=== PATIENT | female | born 1985 | race Caucasian/White ===

== ENCOUNTER 2024-09-15 12:57 | Inpatient (IN) | payer BC, OTHER ==
[~2024-09-15] VITALS: Ht 160 cm; Wt 72.6 kg
[2024-09-15] VITALS (7 sets, daily range): BP systolic 127–161; BP diastolic 87–104; PULSE 93–118; RESP 15–17; TEMP 97.7–98.7; O2SAT 95–100
[2024-09-15] MEDS: hydrALAZINE HCL 20 MG/ML VL IV PRN (13:25)
[2024-09-15] MEDS: MAGNESIUM SULFATE 100 ML IV ONE (13:52)
[2024-09-15 14:04] LABS: Basophils # (auto) 0.1 10 ^3/uL (0-0.2); Basophils % (auto) 1.2 % (0.0-2.0); Eosinophils # (auto) 0 10 ^3/uL (0-0.8); Hematocrit 37.5 % (36.0-46.0); Hemoglobin 12.9 g/dL (12.2-16.2); Lymphocytes # (auto) 0.8 10 ^3/uL (0.4-5.4); Lymphocytes % (auto) 5.9 % (10.0-50.0); Mean Corpuscular Hemoglobin 31.3 pg (28.0-32.0); Mean Corpuscular Hgb Conc. 34.5 g/dL (32.0-36.0); Mean Corpuscular Volume 90.7 fL (80.0-100.0); Monocytes # (auto) 0.8 10 ^3/uL (0-1.3); Monocytes % (auto) 5.9 % (0.0-12.0); Neutrophils # (auto) 11.2 10 ^3/uL (1.6-8.6); Platelet Count (auto) 202 10^3/uL (140-450); Red Blood Cells 4.13 10^6/uL (4.0-5.20); Red Cell Distribution Width 13.2 % (11.8-14.3); White Blood Cell 12.8 10^3/uL (4.4-10.8)
[2024-09-15] MEDS: CLINDAMYCIN 900MG IV 50 ML IV ONE (14:07)
[2024-09-15] MEDS: MAGNESIUM SULFATE 40MG/ML 1,000 ML IV SCH (14:12)
[2024-09-15] MEDS: LACTATED RINGER'S 1,000 ML IV SCH (14:12)
[2024-09-15 14:18] LABS: INR 0.9 (0.9-1.15); Partial Thromboplastin Time 25.9 SEC (24.5-34.5); Prothrombin Time 9.6 sec (9.3-11.8)
[2024-09-15 14:22] LABS: Alanine Aminotransferase 20 U/L (7-40); Albumin 3.3 g/dL (3.2-4.8); Alkaline Phosphatase 623 U/L (46-116); Anion Gap 8 (5-15); Aspartate Aminotransferase 39 U/L (13-40); BUN/Creatinine Ratio 13.1 (10.0-20.0); Bilirubin, Total 0.4 mg/dL (0.2-1.0); Blood Urea Nitrogen 11 mg/dL (9-23); Carbon Dioxide 20 mmol/L (20-31); Chloride 107 mmol/L (98-107); Glucose 70 mg/dL (74-106); Potassium 4.3 mmol/L (3.5-5.1); Sodium 135 mmol/L (136-145); Total Protein 6.2 g/dL (5.7-8.2); Uric Acid 9.6 mg/dL (3.1-7.8)
[2024-09-15 14:36] LABS: Urine Bacteria FEW /hpf (None Seen); Urine Blood 2+ /uL (Negative); Urine Clarity Turbid (Clear); Urine Color Colorless (Yellow); Urine Protein, UAD 1+ (Negative); Urine Specific Gravity 1.005 (1.001-1.035); Urine Urobilinogen Normal (Negative); Urine WBC 262 /hpf (0 - 5); Urine WBC Clumps PRESENT /hpf (None Seen); Urine pH 6.5 (5.0-9.0)
[2024-09-15 14:47] LABS: Protein, Urine 71.1 mg/dL (1-14)
[2024-09-15 14:48] LABS: Amphetamine Screen, Urine Pos (NEGATIVE)
[2024-09-15 14:49] LABS: Barbiturate Scree,Urine Neg (NEGATIVE); Benzodiazephine Screen, Urine Neg (NEGATIVE); Cannabinoid Screen, Urine Neg (NEGATIVE); Cocaine Screen, Urine Neg (NEGATIVE); Opiate Scree,Urine Neg (NEGATIVE); Phencyclidine Screen, Urine Neg (NEGATIVE)
[2024-09-15] MEDS ORDERED: fentaNYL CITRATE 100 MCG/2 ML VL ONE (14:54)
[2024-09-15] MEDS ORDERED: MIDAZOLAM HCL 2MG/2ML 2ml VIAL (1mg/ml) ONE (14:54)
[2024-09-15] MEDS: CARBOPROST TROMETHAMINE 250 MCG/1ML VIAL IM ONE ×3 (15:00→16:45)
[2024-09-15 15:17] LABS: Creatinine, Urine 30.12 mg/dL (30.0-125.0); Urine Protein/Creatinine Ratio 2.36
[2024-09-15] MEDS ORDERED: DOCU-94 PO (15:29)
[2024-09-15] MEDS ORDERED: IBUP-1456 PO (15:29)
[2024-09-15] MEDS ORDERED: ROCURONIUM 10MG/ML 10ML VIAL IV ONE (15:29)
[2024-09-15] MEDS ORDERED: LIDOCAINE 2% (LOCAL ANESTH.) PF 5ml SDV ONE (15:29)
[2024-09-15] MEDS ORDERED: oxyTOCIN 10 UNIT/ML 10ML VIAL ONE (15:29)
[2024-09-15] MEDS ORDERED: PROPOFOL 10 MG/ML 20 ML IV ONE (15:29)
[2024-09-15] MEDS ORDERED: HYDR-4072 PO (15:29)
[2024-09-15] MEDS ORDERED: ONDANSETRON HCL 4 MG/2 ML VIAL IV PRN (15:30)
[2024-09-15] MEDS ORDERED: LACT. RINGERS/OXYTOCIN 20UNITS 1,000 ML IV ONE (15:30)
[2024-09-15] MEDS ORDERED: SUGAMMADEX 200mg/2ml Vial (100MG/ML) IV ONE (16:06)
[2024-09-15] MEDS ORDERED: METOPROLOL TARTRATE 1MG/1ML-5ML VIAL IV ONE (16:06)
[2024-09-15] MEDS ORDERED: ACETAMINOPHEN IV 100 ML IV ONE (16:26)
[2024-09-15] MEDS ORDERED: MEPERIDINE HCL (25 MG/ML) 1ML VIAL IM ONE (16:30)
[2024-09-15] MEDS: ACETAMINOPHEN IV 1000 MG/100ML (10MG/ML) IV ONE (16:30)
[2024-09-15] MEDS ORDERED: ONDANSETRON HCL 4 MG/2 ML VIAL IV ONE (16:30)
[2024-09-15] MEDS ORDERED: HYDROmorphone HCL 2 MG/ML VL/or syr IV PRN ×2 (16:30)
[2024-09-15] MEDS ORDERED: MEPERIDINE HCL (25 MG/ML) 1ML VIAL ONE (16:32)
[2024-09-15] MEDS ORDERED: ONDANSETRON HCL 4 MG/2 ML VIAL ONE (16:38)
[2024-09-15] MEDS ORDERED: CARBOPROST TROMETHAMINE 250 MCG/1ML VIAL IM ONE (16:39)
[2024-09-15] MEDS: DIPHENOXYLATE W/ATROPINE 2.5 MG TAB PO ONE (18:01)
[2024-09-15 22:51] LABS: Basophils # (auto) 0 10 ^3/uL (0-0.2); Basophils % (auto) 0.2 % (0.0-2.0); Eosinophils # (auto) 0.2 10 ^3/uL (0-0.8); Eosinophils % (auto) 0.8 % (0.0-7.0); Hematocrit 45.3 % (36.0-46.0); Hemoglobin 15.3 g/dL (12.2-16.2); Lymphocytes # (auto) 0.7 10 ^3/uL (0.4-5.4); Lymphocytes % (auto) 2.7 % (10.0-50.0); Mean Corpuscular Hemoglobin 31.2 pg (28.0-32.0); Mean Corpuscular Hgb Conc. 33.8 g/dL (32.0-36.0); Mean Corpuscular Volume 92.5 fL (80.0-100.0); Monocytes # (auto) 0.4 10 ^3/uL (0-1.3); Monocytes % (auto) 1.8 % (0.0-12.0); Neutrophils # (auto) 23.2 10 ^3/uL (1.6-8.6); Neutrophils % (auto) 94.5 % (37.0-80.0); Platelet Count (auto) 85 10^3/uL (140-450); Red Blood Cells 4.89 10^6/uL (4.0-5.20); Red Cell Distribution Width 13.4 % (11.8-14.3); White Blood Cell 24.5 10^3/uL (4.4-10.8)
[2024-09-16] VITALS (19 sets, daily range): BP systolic 101–119; BP diastolic 45–72; PULSE 71–89; RESP 14–77; TEMP 97.7–98; O2SAT 95–98
[2024-09-16] MEDS: LABETALOL HCL 200 MG TAB PO SCH (00:48)
[2024-09-16] MEDS: ACETAMINOPHEN IV 1000 MG/100ML (10MG/ML) IV PRN (00:57)
[2024-09-16] MEDS: HYDROmorphone HCL 2 MG/ML VL/or syr IM ONE (02:16)
[2024-09-16] MEDS: FUROSEMIDE 20 MG/2 ML VIAL IV ONE (03:34)
[2024-09-16 07:07] LABS: Basophils # (auto) 0 10 ^3/uL (0-0.2); Basophils % (auto) 0.1 % (0.0-2.0); Eosinophils # (auto) 0 10 ^3/uL (0-0.8); Hematocrit 34.6 % (36.0-46.0); Hemoglobin 11.7 g/dL (12.2-16.2); Lymphocytes % (auto) 5.6 % (10.0-50.0); Mean Corpuscular Hemoglobin 30.9 pg (28.0-32.0); Mean Corpuscular Hgb Conc. 33.9 g/dL (32.0-36.0); Mean Corpuscular Volume 91.4 fL (80.0-100.0); Monocytes # (auto) 0.8 10 ^3/uL (0-1.3); Monocytes % (auto) 4.4 % (0.0-12.0); Neutrophils # (auto) 16.4 10 ^3/uL (1.6-8.6); Neutrophils % (auto) 89.9 % (37.0-80.0); Platelet Count (auto) 206 10^3/uL (140-450); Red Blood Cells 3.79 10^6/uL (4.0-5.20); Red Cell Distribution Width 13.3 % (11.8-14.3); White Blood Cell 18.3 10^3/uL (4.4-10.8)
[2024-09-16 07:07] LABS: RPR Non Reactive (Non Reactive)
[2024-09-16 07:12] LABS: Alanine Aminotransferase 16 U/L (7-40); Albumin 2.2 g/dL (3.2-4.8); Alkaline Phosphatase 425 U/L (46-116); Anion Gap 9 (5-15); Aspartate Aminotransferase 38 U/L (13-40); BUN/Creatinine Ratio 14.6 (10.0-20.0); Bilirubin, Total 0.2 mg/dL (0.2-1.0); Blood Urea Nitrogen 14 mg/dL (9-23); Calcium 8.1 mg/dL (8.7-10.4); Carbon Dioxide 19 mmol/L (20-31); Chloride 107 mmol/L (98-107); Glucose 116 mg/dL (74-106); Potassium 4.3 mmol/L (3.5-5.1); Sodium 135 mmol/L (136-145); Total Protein 4.2 g/dL (5.7-8.2)
[2024-09-16] MEDS ORDERED: BISACODYL 10 MG RECT SUPP PR PRN (08:00)
[2024-09-16] MEDS ORDERED: MORPHINE SULFATE INJ 2 MG/ml SYRG IV PRN (08:30)
[2024-09-16] MEDS: HYDROcodone-ACET 5/325MG TAB PO PRN (09:58)
[2024-09-16] MEDS: IBUPROFEN 800 MG TAB PO PRN (11:51)
[2024-09-16] MEDS: DOCUSATE SOD 100 MG CAP PO SCH (11:51)
[2024-09-16] MEDS: DOCUSATE CALCIUM 240 MG CAP PO SCH (11:52)
[2024-09-16] MEDS: SIMETHICONE 80 MG CHEWABLE TABLET PO SCH (15:57)
[2024-09-17 03:00] VITALS: BP 134/70; PULSE 82; RESP 16; TEMP 97.8; O2SAT 100
[2024-09-17] MEDS: HYDROcodone-ACET 5/325MG TAB PO PRN (03:03)
[2024-09-17] MEDS: KETOROLAC TROMETH 60MG/2ML VIAL IM ONE (05:33)
[2024-09-17 07:00] VITALS: BP 142/78; PULSE 86; RESP 16; TEMP 98.3; O2SAT 95
[2024-09-17 11:07] VITALS: BP 125/69; PULSE 89; RESP 16; TEMP 98; O2SAT 95
[2024-09-17 15:00] VITALS: BP 118/63; PULSE 90; RESP 17; TEMP 97.5; O2SAT 95
[2024-09-17 19:00] VITALS: BP 129/74; PULSE 95; RESP 16; TEMP 97.9; O2SAT 98
[2024-09-17 21:02] VITALS: BP 129/74; PULSE 95; RESP 18; TEMP 97.9; O2SAT 98
[2024-09-19 11:07] LABS: Treponema Pallidum Ab LC Non Reactive (Non Reactive)
== END 2024-09-17 21:02 | disposition home or self-care (01) | DRG 539 ==
LOC: LDRP 12:57 → OBSVTOIN 13:32 → LDRP 15:08
PROVIDERS: ADMIT Obstetrics & Gynecology; ATTEND Obstetrics & Gynecology
PROC: 10D00Z1 Extraction of Products of Conception, Low, Open Approach (ICD-10-PCS; 2024-09-15)
PROC: 0UL70CZ Occlusion of Bilateral Fallopian Tubes with Extraluminal Device, Open Approach (ICD-10-PCS; principal; 2024-09-15 14:40)
DX: O32.1XX0 Maternal care for breech presentation, not applicable or unspecified (principal); O14.94 Unspecified pre-eclampsia, complicating childbirth; O16.4 Unspecified maternal hypertension, complicating childbirth; Z37.0 Single live birth; Z3A.38 38 weeks gestation of pregnancy; Z30.2 Encounter for sterilization
CPT/HCPCS: 36415; 59025; 76805; 80053; 80307; 81001; 81002; 82570; 83735; 84156; 84550; 85025; 85610; 85730; 86592; 86703; 86762; 86780; 86803; 86850; 86900; 86901; 87340; 94760; 94762; 96360; 96361; 96365; 96366; 96372; 96374; 96375; G0378; J0131; J1885; J2003; J2250; J2405; J2590; J2704; J3490